=== PATIENT | male | born 1990 | race Two or more races ===

== ENCOUNTER 2018-01-17 19:43 | Emergency (ER) | payer OTHER ==
[2018-01-17 19:54] VITALS: BP 141/88
[2018-01-17] MEDS ORDERED: SKIN ADHESIVE (DERMABOND) 1 EACH TP ONE (20:35)
--- NOTE | 2018-01-17 20:40 | EDPHY ---
H & P Smoking Status: Current every day smoker Time Seen by Provider: 01/17/18 19:56 HPI/ROS: Chief complaint: Left thumb laceration History of present illness: 27-year-old male, up-to-date on tetanus, presents for a left thumb laceration. He cut the tip of the thumb with a knife at work. Minimal bleeding. Bleeding controlled with a dressing. Mild pain. He is still moving it well. No report of abnormal coolness or paresthesias. (Herman Lezama) Physical Exam: General: Alert, nontoxic. Skin: There is essentially a laceration causing a flap to the very tip of left thumb going through the very distal part of the nail. It approximates well. Musculoskeletal: Patient is flexing and extending the thumb in the PIP and moving the MCP joint well in all haines. Vascular: Capillary refill brisk the left thumb. Neurologic: Sensation intact in left thumb. (Herman Lezama) Constitutional: Initial Vital Signs Temperature (C) 36.7 C 01/17/18 19:43 Heart Rate 84 01/17/18 19:43 Respiratory Rate 16 01/17/18 19:43 Blood Pressure 141/88 H 01/17/18 19:43 O2 Sat (%) 96 01/17/18 19:43 O2 Delivery Mode Room Air Allergies/Adverse Reactions: No Known Allergies Allergy (Verified 01/17/18 19:51) Home Medications: Medication Instructions Recorded Omeprazole 01/17/18 MDM/Departure - MDM Procedures: Procedure: Laceration repair. Verbal consent was obtained from the patient. The 0.5 cm superficial laceration on the left thumb was irrigated, draped and explored to its base with a gloved finger. There were no deep structures involved. No tendon injury was identified. The wound was repaired with Dermabond. The wound repair was simple. The procedure was performed by myself. (Herman Lezama) ED Course/Re-evaluation: Patient seen under the supervision of my secondary supervising physician Dr. Lance Giraldo. Patient presents to the emergency department for a superficial laceration to the very tip of his left thumb. The thumb is neurovascularly intact. As it approximates so well it is glued and dressed. His tetanus is already up-to-date. He is to follow up with worker's compensation for recheck. Return precautions are given. (Herman Lezama) - Depart Disposition: Home, Routine, Self-Care Clinical Impression: Laceration of left thumb Qualifiers: Encounter type: initial encounter Damage to nail status: with damage Foreign body presence: without foreign body Qualified Code(s): S61.112A - Laceration without foreign body of left thumb with damage to nail, initial encounter Condition: Good Instructions: Laceration (ED), Skin Adhesive Care (ED) Additional Instructions: Follow-up with worker's compensation for recheck If symptoms worsen or new symptoms develop, return to the emergency department Seguimiento con las compensaciones de los trabajadores para un chequeo. Si los sintomas empeoran o si desarolla sintomas nuevos, regrese al departamento de emergencias. Referrals: NONE *PRIMARY CARE P,. [Primary Care Provider] - As per Instructions [facility],. [Clinic] - As per Instructions Print Language: Chinese
== END 2018-01-17 20:42 | disposition home or self-care (01) ==
PROC: 0HQGXZZ Repair Left Hand Skin, External Approach (ICD-10-PCS; principal; 2018-01-17)
DX: S61.112A Laceration without foreign body of left thumb with damage to nail, initial encounter (principal); F17.200 Nicotine dependence, unspecified, uncomplicated; W26.0XXA Contact with knife, initial encounter; Y92.69 Other specified industrial and construction area as the place of occurrence of the external cause; Y99.0 Civilian activity done for income or pay; Y93.89 Activity, other specified